=== PATIENT | male | born 1975 | race Caucasian/White ===

== ENCOUNTER 2019-12-13 07:45 | Outpatient (CLI) | payer OTHER, SELFPAY ==
[2019-12-13 07:55] LABS: Add Urine Microscopic? NO; Appearance Urine Clear (Clear); Bilirubin Urine Negative (Negative); Blood Urine Negative (Negative); Color Urine Yellow (Yellow); Glucose Urine UA Negative (Negative); Ketones Urine Negative (Negative); Leukocyte Esterase Ur Negative LEU/UL (Negative); Nitrate Urine Negative (Negative); Protein Urine Negative (Negative); Urobilinogen Urine 0.2 mg/dL (0.2-1.0); pH Urine 5.5 (5.0-8.0)
[2019-12-13 08:04] LABS: Hemoglobin A1C 5.7 % (<5.7)
[2019-12-13 08:41] LABS: Creatinine Urine 104.03 mg/dL (40-278)
[2019-12-13 08:56] LABS: MALB Creatinine Ratio 4.2 mg/g (0-30); Microalbumin Urine Random 4.4 mg/L
[2019-12-13 09:02] LABS: Alanine Aminotransferase 54 U/L (16-63); Albumin Level 4.2 g/dL (3.4-5.0); Alkaline Phosphatase 46 U/L (46-116); Anion Gap 11.9 mmol/L (7-16); Aspartate Amino Transferase 37 U/L (15-37); Bilirubin,Total 0.4 mg/dL (0.00-1.00); Blood Urea Nitrogen 12 mg/dL (7-18); Calcium 9.1 mg/dL (8.5-10.1); Carbon Dioxide 28 mmol/L (21-32); Chloride 104 mmol/L (98-108); Cholesterol 196 mg/dL (0-200); Creatine Kinase 647 U/L (39-308); Estimated Glomerular Filt Rate > 60; Glucose 118 mg/dL (70-99); HDL Direct 38 mg/dL (40-60); LDL Cholesterol Calculated 129 mg/dL (<130); Osmolality Calculated 290 mOsm/kg (285-295); Potassium 3.9 mmol/L (3.5-5.1); Sodium 140 mmol/L (136-145); Total Protein 7.4 g/dL (6.4-8.2); Triglycerides 145 mg/dL (0-150)
== END 2019-12-13 07:46 | disposition home or self-care (01) ==
LOC: CHSLAB 07:46
PROVIDERS: PCP Internal Medicine; Visit Provider Internal Medicine
DX: E78.5 Hyperlipidemia, unspecified (principal); R73.01 Impaired fasting glucose
CPT/HCPCS: 36415; 80053; 80061; 81003; 82043; 82550; 83036

== ENCOUNTER 2020-05-20 10:23 | Outpatient (CLI) | payer BC, SELFPAY ==
[2020-05-20 11:15] LABS: SARS-CoV-2 Ag Positive (Negative)
== END 2020-05-20 10:24 | disposition home or self-care (01) ==
LOC: CHSLAB 10:29
PROVIDERS: PCP Internal Medicine; Visit Provider Internal Medicine
DX: U07.1 COVID-19 (principal)
CPT/HCPCS: 87426; C9803

== ENCOUNTER 2021-04-28 12:21 | Outpatient (CLI) | payer BC, SELFPAY | END 2021-04-28 12:22 | disposition home or self-care (01) | PROVIDERS: PCP Internal Medicine; Visit Provider Specialist | DX: D22.5 Melanocytic nevi of trunk (principal); D22.61 Melanocytic nevi of right upper limb, including shoulder | CPT/HCPCS: 88305 ==

== ENCOUNTER → 2022-02-02 15:11 | Outpatient (CLI) | payer BC, SELFPAY ==
--- NOTE | ~2022-02-02 | US_ITS ---
EXAMINATION: US soft tissue abdomen DATE: 02/02/2022 16:05 INDICATION: Left upper abdominal wall mass TECHNIQUE: Multiple grayscale and Doppler ultrasound images of the abdominal wall the region of richard rn were obtained. COMPARISON: None FINDINGS: Approximately 7.3 x 2.1 x 4.7 cm ovoid mass in the subcutaneous fat at the region of concern. The mas s demonstrates similar echogenicity, echotexture and internal septated architecture as the surroundin g subcutaneous fat which could be most consistent with a lipoma. No other abnormal masses or fluid co llections identified. IMPRESSION: 1. Nonspecific 7.3 x 2.1 x 4.7 cm subcutaneous mass with appearance most consistent with and statisti mukesh most likely to represent a lipoma. Reviewed, dictated and finalized at location A. IMPRESSION: 1. Nonspecific 7.3 x 2.1 x 4.7 cm subcutaneous mass with appearance most consis tent with and statistically most likely to represent a lipoma.
== END ==
PROVIDERS: PCP Internal Medicine; Visit Provider Internal Medicine
DX: R19.09 Other intra-abdominal and pelvic swelling, mass and lump (principal)
CPT/HCPCS: 76705